=== PATIENT | female | born 1985 | race Asian ===

== ENCOUNTER 2017-03-30 18:46 | Emergency (ER) | payer OTHER ==
[~2017-03-30] VITALS: Ht 175.3 cm; Wt 129.3 kg
== END 2017-03-30 20:59 | disposition home or self-care (01) ==
LOC: ED 18:46
DX: M79.1 Myalgia (principal); R10.9 Unspecified abdominal pain; V43.52XA Car driver injured in collision with other type car in traffic accident, initial encounter
CPT/HCPCS: 99283

== ENCOUNTER 2017-08-20 17:07 | Outpatient (CLI) | payer BC | END 2017-08-20 18:10 | disposition home or self-care (01) | LOC: CT 17:07 | DX: R10.31 Right lower quadrant pain (principal) | CPT/HCPCS: Q9963 ==

== ENCOUNTER 2017-08-28 14:16 | Outpatient (CLI) | payer BC | END 2017-08-28 19:00 | disposition home or self-care (01) | LOC: CT 14:16 | DX: N20.2 Calculus of kidney with calculus of ureter (principal) ==

== ENCOUNTER 2018-05-13 19:29 | Emergency (ER) | payer BC ==
[~2018-05-13] VITALS: Ht 172.7 cm; Wt 141.5 kg
[2018-05-14 00:29] VITALS: BP 118/88; TEMP 97.5
== END 2018-05-14 00:30 | disposition home or self-care (01) ==
LOC: ED 19:29
PROC: 2W3CX1Z Immobilization of Right Lower Arm using Splint (ICD-10-PCS; principal; 2018-05-13)
DX: S63.501A Unspecified sprain of right wrist, initial encounter (principal); W19.XXXA Unspecified fall, initial encounter; Y92.414 Local residential or business street as the place of occurrence of the external cause
CPT/HCPCS: 81025; 99283; J1885; L3908

== ENCOUNTER 2018-05-20 18:21 | Outpatient (CLI) | payer BC | END 2018-05-20 23:46 | disposition home or self-care (01) | LOC: RAD 18:21 | DX: S63.91XD Sprain of unspecified part of right wrist and hand, subsequent encounter (principal) ==

== ENCOUNTER 2018-10-18 20:56 | Emergency (ER) | payer OTHER ==
[~2018-10-18] VITALS: Ht 175.3 cm; Wt 144.7 kg
[2018-10-18 21:38] LABS: PLATELET COUNT 285 K/uL (152-353)
[2018-10-18 21:52] LABS: POTASSIUM 3.9 mmol/L (3.6-5.2); SODIUM 138 mmol/L (136-145)
[2018-10-18 23:15] VITALS: BP 129/80; TEMP 97.5
== END 2018-10-18 23:20 | disposition home or self-care (01) ==
LOC: ED 20:56
PROVIDERS: Emergency Medicine
DX: M94.0 Chondrocostal junction syndrome [Tietze] (principal)
CPT/HCPCS: 36415; 80053; 82550; 82553; 83735; 84484; 84702; 85027; 93005; 96374; 99284; J1885

== ENCOUNTER 2018-11-17 16:49 | Emergency (ER) | payer OTHER ==
[~2018-11-17] VITALS: Ht 175.3 cm; Wt 1510.0 kg
[2018-11-17 16:50] VITALS: BP 127/76; TEMP 98.1
== END 2018-11-17 18:00 | disposition home or self-care (01) ==
LOC: ED 16:49
PROC: 2W3KX1Z Immobilization of Left Finger using Splint (ICD-10-PCS; principal; 2018-11-17)
DX: S62.615A Displaced fracture of proximal phalanx of left ring finger, initial encounter for closed fracture (principal); W19.XXXA Unspecified fall, initial encounter
CPT/HCPCS: 99282

== ENCOUNTER 2019-12-07 05:37 | Emergency (ER) | payer OTHER ==
[~2019-12-07] VITALS: Ht 175.3 cm; Wt 1510.0 kg
[2019-12-07 05:54] VITALS: TEMP 98.3
[2019-12-07 06:21] LABS: PLATELET COUNT 313 K/uL (152-353)
[2019-12-07 06:28] LABS: POTASSIUM 4.8 mmol/L (3.6-5.2)
[2019-12-07 10:05] VITALS: BP 122/72
== END 2019-12-07 10:15 | disposition home or self-care (01) ==
LOC: ED 05:37
PROVIDERS: Emergency Medicine Emergency Medical Services
DX: R10.31 Right lower quadrant pain (principal)
CPT/HCPCS: 80053; 81000; 81025; 83690; 85027; 96365; 96375; 96376; 99284; J1170; J1885; J2405; Q9963

== ENCOUNTER 2019-12-22 09:02 | Outpatient (CLI) | payer BC | END 2019-12-22 21:50 | disposition home or self-care (01) | LOC: CT 09:02 | DX: R10.30 Lower abdominal pain, unspecified (principal) ==

== ENCOUNTER 2020-01-18 08:04 | Outpatient (CLI) | payer BC, OTHER | END 2020-01-18 19:42 | disposition home or self-care (01) | LOC: NM 08:04 | DX: R10.11 Right upper quadrant pain (principal) | CPT/HCPCS: A9537 ==

== ENCOUNTER 2020-02-28 10:15 | Outpatient (CLI) | payer BC, OTHER | END 2020-02-28 19:09 | disposition home or self-care (01) | LOC: RAD 10:15 | DX: M25.552 Pain in left hip (principal); M54.42 Lumbago with sciatica, left side ==

== ENCOUNTER 2020-04-19 10:10 | Outpatient (CLI) | payer BC, OTHER ==
[2020-04-19 10:37] LABS: PLATELET COUNT 295 K/uL (152-353)
[2020-04-19 10:57] LABS: POTASSIUM 4.2 mmol/L (3.6-5.2)
== END 2020-04-19 20:20 | disposition home or self-care (01) ==
LOC: LABW 10:10
PROVIDERS: Nurse Practitioner Family
DX: R10.11 Right upper quadrant pain (principal)
CPT/HCPCS: 36415; 80053; 82150; 85027